=== PATIENT | male | born 1975 | race Caucasian/White ===

== ENCOUNTER 2023-07-05 04:32 | Emergency (ER) | payer OTHER, BC ==
[~2023-07-05] VITALS: Ht 188 cm; Wt 92.7 kg
[2023-07-05] MEDS ORDERED: METF500T13 PO (04:42)
[2023-07-05] MEDS ORDERED: JARD1TAB3 PO (04:42)
[2023-07-05 12:35] VITALS: BP 141/90; TEMP 97.1; O2SAT 97
== END 2023-07-05 12:36 | disposition home or self-care (01) ==
LOC: M ED 04:32
DX: S20.212A Contusion of left front wall of thorax, initial encounter (principal); V49.50XA Passenger injured in collision with unspecified motor vehicles in traffic accident, initial encounter; Y92.410 Unspecified street and highway as the place of occurrence of the external cause; Y93.9 Activity, unspecified; Y99.8 Other external cause status